=== PATIENT | male | born 1960 | race Caucasian/White ===

== ENCOUNTER 2021-09-09 11:53 | Emergency (ER) | payer MEDICARE, OTHER ==
[~2021-09-09] VITALS: Ht 167.6 cm; Wt 68.9 kg
--- NOTE | 2021-09-09 12:10 | NUR ---
PATIENT FOR G-TUBE REPLACEMENT
--- NOTE | 2021-09-09 12:15 | NUR ---
SEEN BY DR CALERO. REPLACED G-TUBE WITH STANDARD BALLOON- 16F
--- NOTE | 2021-09-09 12:25 | NUR ---
X-RAY TECH. AT BED SIDE
[2021-09-09 13:06] VITALS: BP 120/75
== END 2021-09-09 13:04 | disposition home or self-care (01) ==
LOC: ER 11:55
DX: K94.23 Gastrostomy malfunction (principal); E78.5 Hyperlipidemia, unspecified; K21.9 Gastro-esophageal reflux disease without esophagitis; E11.22 Type 2 diabetes mellitus with diabetic chronic kidney disease; I12.0 Hypertensive chronic kidney disease with stage 5 chronic kidney disease or end stage renal disease; N18.6 End stage renal disease; F20.9 Schizophrenia, unspecified; Z99.2 Dependence on renal dialysis; Z86.69 Personal history of other diseases of the nervous system and sense organs; Z87.09 Personal history of other diseases of the respiratory system
CPT/HCPCS: 74018

== ENCOUNTER 2022-09-28 12:46 | Inpatient (IN) | payer MEDICARE, OTHER ==
[~2022-09-28] VITALS: Ht 139.7 cm; Wt 65.8 kg
--- NOTE | 2022-09-28 12:55 | NUR ---
BIBPA FROM DIALYSIS FOR HYPOTENSION. 78/53 ON ARRIVAL. PLACED IN BED, NON VERBAL WITH TRACH. TUBE- VENTILATOR DEPENDENT SATURATING AT 100% WITH SETTING FIO2- 40, VT- 500, RATE- 14, PEEP- 5.
[2022-09-28] MEDS ORDERED: MIDODRINE HCL (5MG) 5 MG TABLET NG STA (12:56)
--- NOTE | 2022-09-28 13:10 | NUR ---
SLIVER FORMER AT BEDSIDE
[2022-09-28] MEDS ORDERED: MIDODRINE HCL (5MG) 5 MG TABLET ONE (13:11)
[2022-09-28] MEDS ORDERED: VANCOMYCIN 1 GM in IV D5W 250 ML IV ONE (13:30)
[2022-09-28] MEDS ORDERED: CEFEPIME 1 GM in IV D5W 50 ML IV ONE (13:30)
[2022-09-28 13:39] LABS: BASOPHILS % (AUTO) 0.3 % (0.0-2.0); EOSINOPHILS % (AUTO) 0.9 % (0.0-6.0); HEMATOCRIT 30 % (39-51); HEMOGLOBIN 9.2 g/dL (13.5-17.5); LYMPHOCYTES # (AUTO) 1.7 K/uL (0.8-4.8); LYMPHOCYTES % (AUTO) 11.3 % (20.0-44.0); MEAN CORPUSCULAR HGB CONC 31 g/dl (31.0-36.0); MEAN CORPUSCULAR VOLUME 102 fL (80-96); MONOCYTES # (AUTO) 1.4 K/uL (0.1-1.30); MONOCYTES % (AUTO) 9.6 % (2.0-12.0); NEUTROPHILS # (AUTO) 11.5 K/uL (1.8-8.9); NEUTROPHILS % (AUTO) 77.9 % (43.0-81.0); PLATELET COUNT (AUTO) 216 K/uL (150-450); RED BLOOD CELL COUNT(AUTO) 2.91 MIL/uL (4.5-6.0); WHITE BLOOD COUNT (AUTO) 14.8 K/uL (4.3-11.0)
[2022-09-28 13:49] LABS: CALCIUM, SERUM 8.6 mg/dL (8.5-10.1); CARBON DIOXIDE 27 mmol/L (21-32); CHLORIDE 106 mmol/L (98-107); CREATININE 2.8 mg/dL (0.6-1.3); GLUCOSE 142 mg/dL (74-106); POTASSIUM 3.4 mmol/L (3.5-5.1); SODIUM SERUM 141 mmol/L (136-145); UREA NITROGEN, BLOOD 42 mg/dL (7-18)
[2022-09-28 13:56] LABS: ALANINE AMINOTRANSFERASE 16 U/L (12-78); ALBUMIN 2.3 g/dL (3.4-5.0); ALKALINE PHOSPHATASE 134 U/L (46-116); ASPARTATE AMINOTRANSFERASE 10 U/L (15-37); BILIRUBIN,DIRECT 0.1 mg/dL (0.0-0.2); BILIRUBIN,TOTAL 0.3 mg/dL (0.2-1.0); TOTAL PROTEIN, SERUM 6.3 g/dL (6.4-8.2)
--- NOTE | 2022-09-28 13:58 | NUR ---
[facility] CALLED, QUILL FIXER PAGED.
--- NOTE | 2022-09-28 14:31 | NUR ---
[facility]. [facility] [phone].
--- NOTE | 2022-09-28 14:38 | NUR ---
GOT BED 101 ADMITTING INFORMED.
--- NOTE | 2022-09-28 15:05 | NUR ---
REPORT GIVEN TO MADISON RN ROOM 101 FOR SARA
--- NOTE | 2022-09-28 15:25 | NUR ---
PATIENT TRANSFERED AND ADMITTED PER [facility]
--- NOTE | 2022-09-28 15:30 | NUR ---
ENGINE DISPATCHER ADMSSION NOTE RECEIVED PT FROM ER. PT IS OBTUNDED, NONVERBAL, RESPONDS TO PAINFUL STIMUL. PT ON TRACH WITH ORDERED SETTINGS TOLERATING WELL SH 8, FIO2 40%, TV 500, PEEP 5, O2 SATURATION AT 100%. NOTED TO HAVE LEFT UPPER CHEST WALL HD ACESSS. PT HAS RIGHT FOREARM 20 GUAGE,. IV INTACT, PTATENT AND FLUSHING WELL, CLAMPED. PT HAS R FOREARM 20 GUAGE, IV ITNACT, PATENT AND FLUSHING WELL. PT NOTED TO HAVE BELOW AND ABOVE KNEE AMPUTATION ON BOTH EXTREMTIES. NOTED TO HAVE OLD SCARRING ON UPPER AND LOWER EXTREMITIES. ALL SAFETY MEASURES IN PLACE. CALL LIGHT WITHIN REACH. BED LOCKED AT LOWEST POSITION. SIDE RAILS UP X2.BED ALARM ON Addendum: 09/28/22 at 1700 by SAEID FLAHERTY RN ON TELE MONITOR CURRENTLY IN 60S
[2022-09-28] MEDS ORDERED: ACETAMINOPHEN 325 MG TABLET PO PRN (16:00)
[2022-09-28] MEDS ORDERED: ONDANSETRON HCL/PF 4 MG/2 ML VIAL IVP PRN (16:00)
[2022-09-28] MEDS ORDERED: Z GUARD REMEDY 4 OZ OINT TP PRN (16:00)
[2022-09-28] MEDS ORDERED: MAGNESIUM HYDROXIDE 30 ML UDC PO PRN (16:00)
[2022-09-28] MEDS ORDERED: MAG HYDROX/AL HYDROX/SIMETH 30 ML UDC PO PRN (16:00)
[2022-09-28] MEDS ORDERED: ZOLPIDEM TARTRATE 5 MG TABLET PO PRN (16:00)
[2022-09-28] MEDS ORDERED: POLY15DR40 EACHEYE (16:37)
[2022-09-28] MEDS ORDERED: NAPH1POW3 GT (16:37)
[2022-09-28] MEDS ORDERED: SACU1TAB PO (16:37)
[2022-09-28] MEDS ORDERED: AMIN30LI2 GT (16:37)
[2022-09-28] MEDS ORDERED: CARV12.52 GT (16:37)
[2022-09-28] MEDS ORDERED: MENT113O6 TP (16:37)
[2022-09-28] MEDS ORDERED: DOCU50LI GT (16:37)
[2022-09-28] MEDS ORDERED: SENN-261 GT (16:37)
[2022-09-28] MEDS ORDERED: DORZ10DR11 EACHEYE (16:37)
[2022-09-28] MEDS ORDERED: AMLO-213 GT (16:37)
[2022-09-28] MEDS ORDERED: CLON0.3P TD (16:37)
[2022-09-28] MEDS ORDERED: INSU100V10 SQ (16:37)
[2022-09-28] MEDS ORDERED: ACET-868 GT (16:37)
[2022-09-28] MEDS ORDERED: POLY17PO4 GT (16:37)
[2022-09-28] MEDS ORDERED: MAGN400T26 GT (16:37)
[2022-09-28] MEDS ORDERED: NUT.237L67 GT (16:37)
[2022-09-28] MEDS ORDERED: VALP250S4 GT (16:37)
[2022-09-28] MEDS ORDERED: PANT40SU2 GT (16:37)
[2022-09-28] MEDS ORDERED: BRIM5DRO3 LEFTEYE (16:37)
[2022-09-28] MEDS ORDERED: FOLI0.8T2 GT (16:37)
[2022-09-28] MEDS ORDERED: IPRA3AMP23 IH (16:37)
[2022-09-28] MEDS ORDERED: HYDR-4077 GT (16:37)
[2022-09-28] MEDS ORDERED: MICO14CR5 TP (16:37)
--- NOTE | 2022-09-28 16:56 | NUR ---
RN NOTE NOTIFIED POTASSIUM 3.4
[2022-09-28 17:00] VITALS: BP 93/59
--- NOTE | 2022-09-28 17:53 | NUR ---
RN NOTE PT CAME FROM [facility] [phone]
--- NOTE | 2022-09-28 18:20 | NUR ---
RN NOTE TEMPERATURE 99.7, COOLING MEASURES IMPLEMENTED. TEMPERATURE RECHECK 98.4
[2022-09-28] MEDS ORDERED: Medication Not On Formulary EA (Ipratropium/Albuterol Sulfate (Duoneb 2.5-0.5 Mg/3 Ml So IH PRN (18:30)
[2022-09-28] MEDS ORDERED: POLYETHYLENE GLYCOL 3350 17 GM POWD.PACK GT PRN (18:30)
[2022-09-28] MEDS ORDERED: NEPRO VAN 237 ML CAN GT SCH (18:30)
[2022-09-28] MEDS ORDERED: ALBUTEROL FS 2.5 MG/0.5 ML VIAL.NEB NEB PRN (19:00)
[2022-09-28] MEDS ORDERED: IPRATROPIUM NEB FS 0.5 MG/2.5 ML AMPUL.NEB NEB PRN (19:00)
--- NOTE | 2022-09-28 19:21 | NUR ---
RELATIONSHIP COUNSELOR CLOSING NOTE PT IS OBTUNDED, NONVERBAL, RESPONDS TO PAINFUL STIMUL. PT ON TRACH WITH ORDERED SETTINGS TOLERATING WELL SH 8, AC, FIO2 40%, TV 500, PEEP 5, O2 SATURATION AT 100%. LEFT UPPER CHEST WALL HD ACESSS. PT HAS RIGHT FOREARM 20 GUAGE, IV ITNACT, PATENT AND FLUSHING WELL. GTUBE,PATENT AND CLAMPED. PT NOTED TO HAVE BELOW AND ABOVE KNEE AMPUTATION ON BOTH EXTREMTIES. NOTED TO HAVE OLD SCARRING ON UPPER AND LOWER EXTREMITIES. ALL SAFETY MEASURES IN PLACE. CALL LIGHT WITHIN REACH. BED LOCKED AT LOWEST POSITION. SIDE RAILS UP X2.BED ALARM ON.ENDORSED TO PRODUCTION SCHEDULER RN FOR CONTUITY OF CARE
--- NOTE | 2022-09-28 19:25 | NUR ---
RN NOTE Received pt in bed, obtunded, responsive to tactile stimuli only. On mech vent. via trach, current settings well tolerated, O2 sat- 100%. Afebrile. No facial grimacing, no s/sx of pain or discomfort noted at this time. PIV access on RFA #20G, patent, dressing CDI, on SL. PEG tube noted, in placed, patent, and secured, 0 residual, clamped. HOB elevated. Safety precaution implemented- bed locked and in lowest position, bed alarm on. Family at bedside. Will cont. plan of care
[2022-09-28 19:54] LABS: MAGNESIUM 2.4 mg/dL (1.8-2.4); PHOSPHORUS 2.3 mg/dL (2.5-4.9)
[2022-09-28 21:00] VITALS: BP 97/55
[2022-09-28] MEDS: CARVEDILOL 12.5 MG TABLET GT SCH (21:00)
[2022-09-28] MEDS: VALPROIC ACID 250 MG/5 ML UDC GT SCH (21:22)
[2022-09-28] MEDS: INSULIN GLARGINE, 100 UNIT/ML CARTRIDGE SQ SCH (22:00)
[2022-09-28] MEDS: SENNOSIDES 8.6 MG TABLET GT SCH (22:29)
[2022-09-28] MEDS ORDERED: DEXTROSE 50%-WATER 50 ML DISP.SYRIN IV PRN (22:30)
[2022-09-28] MEDS: INSULIN REGULAR, HUMAN 100 UNIT/ML 3 ML VIAL SQ PRN (23:45)
[2022-09-28] MEDS: BLOOD SUGAR DIAGNOSTIC 1 EACH STRIP IN SCH (23:45)
[2022-09-29 01:00] VITALS: BP 110/61
[2022-09-29 05:00] VITALS: BP 115/54
[2022-09-29] MEDS: VALPROIC ACID 250 MG/5 ML UDC GT SCH ×3 (05:17→21:10)
[2022-09-29 06:25] LABS: BASOPHILS # (AUTO) 0.2 K/uL (0.0-0.2); BASOPHILS % (AUTO) 1.7 % (0.0-2.0); EOSINOPHILS % (AUTO) 5.3 % (0.0-6.0); HEMATOCRIT 30 % (39-51); HEMOGLOBIN 9.3 g/dL (13.5-17.5); LYMPHOCYTES # (AUTO) 2.8 K/uL (0.8-4.8); LYMPHOCYTES % (AUTO) 21.9 % (20.0-44.0); MEAN CORPUSCULAR HGB CONC 31 g/dl (31.0-36.0); MEAN CORPUSCULAR VOLUME 103 fL (80-96); MONOCYTES # (AUTO) 1.6 K/uL (0.1-1.30); MONOCYTES % (AUTO) 12.7 % (2.0-12.0); NEUTROPHILS # (AUTO) 7.4 K/uL (1.8-8.9); NEUTROPHILS % (AUTO) 58.4 % (43.0-81.0); PLATELET COUNT (AUTO) 144 K/uL (150-450); RED BLOOD CELL COUNT(AUTO) 2.93 MIL/uL (4.5-6.0); WHITE BLOOD COUNT (AUTO) 12.7 K/uL (4.3-11.0)
[2022-09-29] MEDS: BLOOD SUGAR DIAGNOSTIC 1 EACH STRIP IN SCH ×4 (06:59→23:45)
[2022-09-29] MEDS: INSULIN REGULAR, HUMAN 100 UNIT/ML 3 ML VIAL SQ PRN ×4 (07:00→23:48)
--- NOTE | 2022-09-29 07:15 | NUR ---
LINEN CLERK OPENING NOTE Received pt in bed, obtunded, responsive to tactile stimuli only. On mech vent. via trach, current settings well tolerated, O2 sat- 100%. SR 68 W/PAC AND PVCS. ON TELE MONITOR PIV access on RFA #20G, patent, dressing CDI, on SL. PEG tube noted, in placed, patent, and secured, 0 residual, clamped. HOB elevated. Safety precaution implemented- bed locked and in lowest position, bed alarm on.
[2022-09-29 08:04] LABS: CALCIUM, SERUM 9.3 mg/dL (8.5-10.1); CREATININE 3.9 mg/dL (0.6-1.3); MAGNESIUM 2.7 mg/dL (1.8-2.4); PHOSPHORUS 3.8 mg/dL (2.5-4.9); POTASSIUM 4.1 mmol/L (3.5-5.1)
[2022-09-29] MEDS ORDERED: NEPRO 1,000 ML BOTTLE GT PRN (08:30)
[2022-09-29 09:00] VITALS: BP 108/65
[2022-09-29] MEDS: CARVEDILOL 12.5 MG TABLET GT SCH ×2 (09:00→21:10)
[2022-09-29] MEDS: hydrALAZINE HCL 50 MG TABLET GT SCH ×3 (09:00→16:33)
[2022-09-29] MEDS ORDERED: MICONAZOLE NITRATE 2% CREAM 1 EA TUBE TP SCH (09:00)
[2022-09-29] MEDS ORDERED: [UNRECOGNIZED DRUG - OTHER] EACHEYE SCH (09:00)
[2022-09-29] MEDS: PROSOURCE / PROSTAT (PYXIS) 30 ML UDC GT SCH ×3 (09:00→16:33)
[2022-09-29] MEDS: SACUBITRIL/VALSARTAN 1 EACH TABLET PO SCH ×2 (09:00→17:46)
[2022-09-29] MEDS ORDERED: TIMOLOL MAL/DORZOLAM HCL OPHTH 10 ML BOTTLE EACHEYE SCH (09:00)
[2022-09-29] MEDS ORDERED: TIMOLOL EACHEYE SCH (09:00)
[2022-09-29] MEDS ORDERED: CLONIDINE HCL 0.3 MG/24H PTWK 1 EA PATCH TD SCH (09:00)
[2022-09-29] MEDS: AMLODIPINE BESYLATE 10 MG TABLET GT SCH (09:00)
--- NOTE | 2022-09-29 09:11 | NUR ---
WOUND CARE CONSULT: PT PRESENTS WITH SCARRING/DRY SCAB TO RT ABOVE KNEE AMPUTATION STUMP, SACRAL DEEP TISSUE INJURY WITH SCARRING AND AREAS OF SKIN DISCOLORATION, PRESENT ON ADMISSION. 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 DISCUSSES SKIN PROTECTION WITH NURSING STAFF. IN AGREEMENT WITH PLAN OF CARE. Addendum: 09/29/22 at 912 by JASMINA GALE Amended: Links added. Addendum: 09/29/22 at 912 by JASMINA MEZAU LOW AIRLOSS MATTRESS IS ON ORDER.
--- NOTE | 2022-09-29 09:23 | NUR ---
RN NOTE NOTIFIED IBP 108/65 AND IF OKAY TO HOLD BP MEDICATIONS, HYDRAZALINE,COREG, NORVASC, AND ENTRESTO. SAID OKAY TO HOLD
[2022-09-29] MEDS: TIMOLOL 0.25% SOL OPHTH 10 ML BOTTLE EACHEYE SCH ×2 (09:42→16:26)
[2022-09-29] MEDS: POLYVINYL ALCOHOL 15 ML BOTTLE EACHEYE SCH ×2 (09:42→16:26)
[2022-09-29] MEDS: NEUTRA PHOS 1 POWD.PACKET GT SCH (09:43)
[2022-09-29] MEDS: BRIMONIDINE TARTRATE OPHT SOLN 5 ML BOTTLE LEFTEYE SCH ×2 (09:43→16:27)
[2022-09-29] MEDS: MAGNESIUM OXIDE 400 MG TABLET GT SCH (09:43)
[2022-09-29] MEDS: DOCUSATE SODIUM LIQ 100 MG/10 ML UDC GT SCH ×2 (09:43→16:32)
[2022-09-29] MEDS: DORZOLAMIDE OPTH 2% 10 ML BOTTLE EACHEYE SCH ×2 (09:43→16:27)
[2022-09-29] MEDS: PANTOPRAZOLE 40 MG/PACK PACK GT SCH (09:43)
[2022-09-29] MEDS: VIT B CMPLX 3/FA/VIT C/BIOTIN 1 TAB TABLET GT SCH (09:43)
[2022-09-29 13:00] VITALS: BP 131/66
[2022-09-29 13:45] LABS: THYROID STIMULATING HORMONE 0.791 uIU/mL (0.358-3.74)
[2022-09-29] MEDS: CEFEPIME 1 GM in IV D5W 50 ML IV SCH (14:00)
[2022-09-29 17:00] VITALS: BP 125/65
[2022-09-29] MEDS: CLOTRIMAZOLE 1% 15 GM TUBE TP SCH (17:45)
--- NOTE | 2022-09-29 19:18 | NUR ---
PHYSICIAN OFFICE CLIN ASST OPENING NOTE PT IN BED, OBTUNDED, RESPONSIVE TO TACTILE STIMULI ONLY.ON MECHANICAL VENT VIA TRACH, TOLERATING SETTINGS WELL, O2 SAT AT 100%. SR 79 ON TELE MONITOR. IV ACCESS ON RFA 20 GUAGE, PATENT, INTACT AND FLUSHING WELL.LEFT UPPER CHEST WALL HD CATH,DRESSING CLEAN AND DRY. GTUBE IN PLACE,PATENT, NO RESIDUAL VOLUME NOTED, ON NEPHRO FEEDING 55 ML/HR X17 HOURS, TOLERATING WELL. HOB ELEVATED AT ALL TIMES. ALL SAFETY MEASURES IN PLACE. BED LOCKED IN LOWEST POSITION. SIDE RAILS UP X2, BED ALARM ON.FAMILY AT BEDSIDE AT THIS TIME. ENDORSED TO OVEN UNLOADER RN FOR CONTUITY OF CARE Addendum: 09/29/22 at 1919 by SAEID FLAHERTY RN CLOSING NOTE
[2022-09-29 20:00] VITALS: BP 124/67
[2022-09-29] MEDS: SENNOSIDES 8.6 MG TABLET GT SCH (21:10)
[2022-09-29] MEDS: INSULIN GLARGINE, 100 UNIT/ML CARTRIDGE SQ SCH (23:49)
[2022-09-30 00:10] VITALS: BP 121/58
--- NOTE | 2022-09-30 02:35 | NUR ---
HEPATITIS B TEST New order Hep B stat. Per lab, Test is send out and results takes 3-5 days to come out, will draw blood earliest around 0500am with am lab so as not needle stick patient twice.
[2022-09-30 04:15] VITALS: BP 156/75
[2022-09-30] MEDS: BLOOD SUGAR DIAGNOSTIC 1 EACH STRIP IN SCH ×4 (05:13→23:36)
[2022-09-30] MEDS: VALPROIC ACID 250 MG/5 ML UDC GT SCH ×3 (05:13→20:59)
[2022-09-30] MEDS: INSULIN REGULAR, HUMAN 100 UNIT/ML 3 ML VIAL SQ PRN ×3 (05:19→23:14)
--- NOTE | 2022-09-30 05:31 | NUR ---
END OF SHIFT REPORT Patient in bed, nonverbal, eyes open. Trach intact, secretion large, suction frequently. Mech vent setting remains the same. Sinus rhythm in the seed cutter HR 74. Oxygen sat 100%. Gtube feeding at 55ml/hr, minimal gastric residual 5ml. IV peripheral line RFA intact. On IV abx. Afebrile during the night. Turned and repositioned, had BM. No urine for test as patient has not voided, Anuric. Left upper chest HD catheter intact, plan for dialysis treatment today. Accu check q6h with sliding insulin parameters given. Optifoam to sacral DTI. Off load extremities. Will endorse to oncoming RN.
[2022-09-30 06:24] LABS: BASOPHILS % (AUTO) 0.4 % (0.0-2.0); EOSINOPHILS % (AUTO) 7.5 % (0.0-6.0); HEMATOCRIT 33 % (39-51); HEMOGLOBIN 10.3 g/dL (13.5-17.5); LYMPHOCYTES # (AUTO) 1.8 K/uL (0.8-4.8); LYMPHOCYTES % (AUTO) 15.5 % (20.0-44.0); MEAN CORPUSCULAR HGB CONC 31 g/dl (31.0-36.0); MEAN CORPUSCULAR VOLUME 100 fL (80-96); MONOCYTES # (AUTO) 1.5 K/uL (0.1-1.30); MONOCYTES % (AUTO) 12.8 % (2.0-12.0); NEUTROPHILS # (AUTO) 7.6 K/uL (1.8-8.9); NEUTROPHILS % (AUTO) 63.8 % (43.0-81.0); PLATELET COUNT (AUTO) 258 K/uL (150-450); RED BLOOD CELL COUNT(AUTO) 3.29 MIL/uL (4.5-6.0); WHITE BLOOD COUNT (AUTO) 11.9 K/uL (4.3-11.0)
[2022-09-30 06:54] LABS: CALCIUM, SERUM 9.5 mg/dL (8.5-10.1); MAGNESIUM 2.8 mg/dL (1.8-2.4); PHOSPHORUS 4.4 mg/dL (2.5-4.9); POTASSIUM 3.5 mmol/L (3.5-5.1)
--- NOTE | 2022-09-30 07:45 | NUR ---
UNIFORM DESIGNER OPENING NOTE RECEIVED PT IN BED, OBTUNDED, RESPONSIVE TO TACTILE STIMULI ONLY. ON MECHANICAL VENT VIA TRACH, TOLERATING SETTINGS WELL, O2 SAT AT 100%. SR ON TELE MONITOR. IV ACCESS ON RFA 20 GAUGE PATENT, INTACT AND FLUSHING WELL. LEFT UPPER CHEST WALL HD CATH,DRESSING CLEAN AND DRY. GTUBE IN PLACE,PATENT, NO RESIDUAL VOLUME NOTED, ON NEPHRO FEEDING 55 ML/HR, TOLERATING WELL, HOB ELEVATED AT ALL TIMES. ALL SAFETY MEASURES IN PLACE. BED LOCKED IN LOWEST POSITION. SIDE RAILS UP X2, BED ALARM ON. CALL LIGHT WITHIN REACH. PLAN OF CARE CONTINUE.
[2022-09-30 08:00] VITALS: BP 135/68
[2022-09-30] MEDS: PROSOURCE / PROSTAT (PYXIS) 30 ML UDC GT SCH ×3 (08:16→16:18)
[2022-09-30] MEDS: BRIMONIDINE TARTRATE OPHT SOLN 5 ML BOTTLE LEFTEYE SCH ×2 (08:16→16:18)
[2022-09-30] MEDS: DORZOLAMIDE OPTH 2% 10 ML BOTTLE EACHEYE SCH ×2 (08:16→16:18)
[2022-09-30] MEDS: CLOTRIMAZOLE 1% 15 GM TUBE TP SCH (08:16)
[2022-09-30] MEDS: TIMOLOL 0.25% SOL OPHTH 10 ML BOTTLE EACHEYE SCH ×2 (08:16→16:18)
[2022-09-30] MEDS: POLYVINYL ALCOHOL 15 ML BOTTLE EACHEYE SCH ×2 (08:16→16:18)
[2022-09-30] MEDS: SACUBITRIL/VALSARTAN 1 EACH TABLET PO SCH ×2 (09:32→16:44)
[2022-09-30] MEDS: PANTOPRAZOLE 40 MG/PACK PACK GT SCH (09:32)
[2022-09-30] MEDS: MAGNESIUM OXIDE 400 MG TABLET GT SCH (09:32)
[2022-09-30] MEDS: NEUTRA PHOS 1 POWD.PACKET GT SCH (09:32)
[2022-09-30] MEDS: DOCUSATE SODIUM LIQ 100 MG/10 ML UDC GT SCH ×2 (09:32→16:44)
[2022-09-30] MEDS: VIT B CMPLX 3/FA/VIT C/BIOTIN 1 TAB TABLET GT SCH (09:32)
[2022-09-30] MEDS: CARVEDILOL 12.5 MG TABLET GT SCH ×2 (09:33→20:59)
[2022-09-30] MEDS: hydrALAZINE HCL 50 MG TABLET GT SCH ×3 (09:33→16:44)
[2022-09-30] MEDS: AMLODIPINE BESYLATE 10 MG TABLET GT SCH (09:33)
[2022-09-30 12:00] VITALS: BP 117/70
[2022-09-30] MEDS: CEFEPIME 1 GM in IV D5W 50 ML IV SCH (12:11)
[2022-09-30] MEDS: VANCOMYCIN POST DIALYSIS 500MG IV PRN ×2 (13:10)
[2022-09-30] MEDS: NEPRO 1,000 ML BOTTLE GT PRN (13:46)
[2022-09-30 16:00] VITALS: BP 116/57
--- NOTE | 2022-09-30 18:32 | NUR ---
FINANCIAL SERVICES INTERN CLOSING NOTE PT IN BED, OBTUNDED, RESPONSIVE TO TACTILE STIMULI ONLY. ON MECHANICAL VENT VIA TRACH, TOLERATING SETTINGS WELL, O2 SAT AT 100%. SR ON TELE MONITOR SR 74 HR. IV ACCESS ON RFA 20 GAUGE PATENT, INTACT AND FLUSHING WELL. LEFT UPPER CHEST WALL HD CATH,DRESSING CLEAN AND DRY. GTUBE IN PLACE,PATENT, NO RESIDUAL VOLUME NOTED, ON NEPHRO FEEDING 45 ML/HR, TOLERATING WELL, NO N/V/D NOTED, HOB ELEVATED AT ALL TIMES. ALL SAFETY MEASURES IN PLACE. BED LOCKED IN LOWEST POSITION. SIDE RAILS UP X2, BED ALARM ON. CALL LIGHT WITHIN REACH. WILL ENDORSE TO NIGHT NURSE FOR SARA.
[2022-09-30 20:00] VITALS: BP 115/68
--- NOTE | 2022-09-30 20:00 | NUR ---
PROMOTIONS ASSOCIATE NOTE Received pt in bed, obtunded.V/S STABLE afebrile no sob no distress noted .On mech vent. via trach, current settings well tolerated, O2 sat- 100%. No facial grimacing, no s/sx of pain or discomfort noted at this time. PIV access on RFA #20G,on sl. patent, right chest wall hd access dressing CDI, PEG tube noted,nephro at 45cc/hrx 20 hrs in placed, patent, and secured, 0 residual, clamped. HOB elevated. call light within reach ,all needs attended too.Safety precaution implemented- bed locked and in lowest position, bed alarm on. Will cont. plan of care.
[2022-09-30] MEDS: SENNOSIDES 8.6 MG TABLET GT SCH (21:14)
[2022-09-30] MEDS: INSULIN GLARGINE, 100 UNIT/ML CARTRIDGE SQ SCH (23:13)
--- NOTE | 2022-09-30 23:21 | NUR ---
CHARGER TESTER NOTES: BLOOD SUGAR FOR 11PM IS 177 MG/DL,30UNITS OF LANTUS GIVEN ORDERED AND 3 UNITS OF REGULAR INSULIN PER SLIDING SCALE. PT IN GT FEEDING.
[2022-10-01] VITALS: BP 128/66
[2022-10-01 04:00] VITALS: BP 115/68
[2022-10-01] MEDS: BLOOD SUGAR DIAGNOSTIC 1 EACH STRIP IN SCH ×4 (05:15→23:23)
[2022-10-01] MEDS: VALPROIC ACID 250 MG/5 ML UDC GT SCH ×3 (05:15→21:04)
[2022-10-01] MEDS: INSULIN REGULAR, HUMAN 100 UNIT/ML 3 ML VIAL SQ PRN ×4 (05:17→23:25)
--- NOTE | 2022-10-01 05:20 | NUR ---
DAY CARE HOME PROVIDER NOTES: bloodsugar at 6am 167 mg/dl , 3 units of regular insulin given per sliding scale, pt on GT feeding
--- NOTE | 2022-10-01 05:54 | NUR ---
MANAGER BOOKS CLOSING NOTES Patient remain in bed, nonverbal, eyes open. Trach intact, secretion large, suction frequently. Mech vent setting remains the same. Sinus rhythm in the wet process operator HR 83. Oxygen sat 99%. Gtube feeding nephro at 45ml/hr, minimal gastric residual 5ml. IV peripheral line RFA intact. Afebrile during the night. Turned and repositioned, . Left upper chest HD catheter intact, Optifoam to sacral DTI. Off load extremities. Will endorse to incoming RN For continuty of care.
--- NOTE | 2022-10-01 07:10 | NUR ---
CIVIL DIVISION DEPUTY SHERIFF OPEN NOTE: OBTUNDED. TRACH AND VENT AT PRESCRIBED SETTINGS. SKIN IS WARM AND DRY. RACE AND SPORTS BOOK WRITER SINUS RHYTHM 82. LEFT UPPER CHEST HD CATHETER INTACT WITH CLEAN DRESSING. RT FOREARM IV G20 SALINE LOCKED, PATENT. GT IN PLACE PATENT NO RESIDUAL WITH NEPHRO FORMULA AT 45ML/HR. HOB ELEVATED. BILATERAL HALF SIDE RAILS UPX2. BED IN LOW POSITION, LOCKED, EXIT ALARM ON. CALL LIGHT IN REACH. ASPIRATION PRECAUTIONS MAINTAINED.
[2022-10-01 07:16] LABS: BASOPHILS % (AUTO) 0.5 % (0.0-2.0); EOSINOPHILS % (AUTO) 8.2 % (0.0-6.0); HEMATOCRIT 34 % (39-51); HEMOGLOBIN 10.6 g/dL (13.5-17.5); LYMPHOCYTES % (AUTO) 18.9 % (20.0-44.0); MEAN CORPUSCULAR HGB CONC 32 g/dl (31.0-36.0); MEAN CORPUSCULAR VOLUME 100 fL (80-96); MONOCYTES # (AUTO) 1.5 K/uL (0.1-1.30); MONOCYTES % (AUTO) 14.4 % (2.0-12.0); PLATELET COUNT (AUTO) 266 K/uL (150-450); RED BLOOD CELL COUNT(AUTO) 3.35 MIL/uL (4.5-6.0); WHITE BLOOD COUNT (AUTO) 10.4 K/uL (4.3-11.0)
[2022-10-01 07:24] LABS: CALCIUM, SERUM 9.6 mg/dL (8.5-10.1); CREATININE 3.8 mg/dL (0.6-1.3); MAGNESIUM 2.6 mg/dL (1.8-2.4); PHOSPHORUS 3.3 mg/dL (2.5-4.9); POTASSIUM 3.3 mmol/L (3.5-5.1)
[2022-10-01 08:00] VITALS: BP 114/74
[2022-10-01] MEDS: POLYVINYL ALCOHOL 15 ML BOTTLE EACHEYE SCH ×2 (09:21→18:12)
[2022-10-01] MEDS: TIMOLOL 0.25% SOL OPHTH 10 ML BOTTLE EACHEYE SCH ×2 (09:22→18:13)
[2022-10-01] MEDS: CLOTRIMAZOLE 1% 15 GM TUBE TP SCH (09:23)
[2022-10-01] MEDS: DORZOLAMIDE OPTH 2% 10 ML BOTTLE EACHEYE SCH ×2 (09:23→18:13)
[2022-10-01] MEDS: BRIMONIDINE TARTRATE OPHT SOLN 5 ML BOTTLE LEFTEYE SCH ×2 (09:24→18:16)
[2022-10-01] MEDS: PANTOPRAZOLE 40 MG/PACK PACK GT SCH (09:25)
[2022-10-01] MEDS: PROSOURCE / PROSTAT (PYXIS) 30 ML UDC GT SCH ×3 (09:26→17:20)
[2022-10-01] MEDS: VIT B CMPLX 3/FA/VIT C/BIOTIN 1 TAB TABLET GT SCH (09:27)
[2022-10-01] MEDS: NEUTRA PHOS 1 POWD.PACKET GT SCH (09:27)
[2022-10-01] MEDS: DOCUSATE SODIUM LIQ 100 MG/10 ML UDC GT SCH ×2 (09:27→17:19)
[2022-10-01] MEDS: MAGNESIUM OXIDE 400 MG TABLET GT SCH (09:27)
[2022-10-01] MEDS: CARVEDILOL 12.5 MG TABLET GT SCH ×2 (09:28→21:00)
[2022-10-01] MEDS: hydrALAZINE HCL 50 MG TABLET GT SCH ×3 (09:28→17:00)
[2022-10-01] MEDS: SACUBITRIL/VALSARTAN 1 EACH TABLET PO SCH ×2 (09:29→17:00)
[2022-10-01] MEDS: AMLODIPINE BESYLATE 10 MG TABLET GT SCH (09:29)
[2022-10-01 12:00] VITALS: BP 118/61
--- NOTE | 2022-10-01 12:03 | NUR ---
DOCTOR LEW INFORMED POTASSIUM IS 3.3, WITH NO NEW ORDERS, PER DOCTOR VIPIN PATIENT IS ON HD TO LEAVE LEVEL IS FOR NOW.
[2022-10-01] MEDS: CEFEPIME 1 GM in IV D5W 50 ML IV SCH (12:44)
[2022-10-01 16:00] VITALS: BP 103/59
[2022-10-01] MEDS: ACETAMINOPHEN 325 MG TABLET MC PRN (17:19)
[2022-10-01] MEDS: NEPRO 1,000 ML BOTTLE GT PRN (17:20)
--- NOTE | 2022-10-01 17:31 | NUR ---
DOCTOR VIPIN INFORMED HYDRALAZINE AND ENTRESTO 5 PM DOSE HELD, BP 103/59 HR 73.
--- NOTE | 2022-10-01 18:46 | NUR ---
FLIGHT TECHNICIAN CLOSING NOTE: OBTUNDED. TRACH AND VENT AT PRESCRIBED SETTINGS. SKIN IS WARM AND DRY. MANAGER OPERATING SINUS RHYTHM 82. LEFT UPPER CHEST HD CATHETER INTACT WITH CLEAN DRESSING. RT FOREARM IV G20 SALINE LOCKED, PATENT. GT IN PLACE PATENT NO RESIDUAL WITH NEPHRO FORMULA AT 45ML/HR. HOB ELEVATED. BILATERAL HALF SIDE RAILS UPX2. BED IN LOW POSITION, LOCKED, EXIT ALARM ON. CALL LIGHT IN REACH. ASPIRATION PRECAUTIONS MAINTAINED. VISITED BY . KEPT CLEAN AND DRY. TURNED AND REPOSITIONED. TOTAL CARE PROVIDED. WOUND CARE DONE ORDERED. BLOOD GLUCOSE CHECKED AND COVERED ORDERED. NO S/S OF HYPO OR HYPER GLYCEMIA.
--- NOTE | 2022-10-01 19:30 | NUR ---
TELE TRAINING TECHNICIAN OPENING NOTE RECEIVED PT IN BED, A/O X0, RESPONSIVE TO TACTILE STIMULI ONLY. ON MECHANICAL VENT VIA TRACH, TOLERATING SETTINGS WELL, O2 SAT AT 100%. SR ON TELE MONITOR. IV ACCESS ON RFA 20 GAUGE PATENT, INTACT AND FLUSHING WELL. LEFT UPPER CHEST WALL HD CATH,DRESSING CLEAN AND DRY. GTUBE IN PLACE,PATENT, NO RESIDUAL VOLUME NOTED, ON NEPHRO FEEDING 55 ML/HR, TOLERATING WELL, HOB ELEVATED AT ALL TIMES. ALL SAFETY MEASURES IN PLACE. BED LOCKED IN LOWEST POSITION. SIDE RAILS UP X2, BED ALARM ON. CALL LIGHT WITHIN REACH. PLAN OF CARE CONTINUE.
[2022-10-01 20:00] VITALS: BP 94/57
[2022-10-01] MEDS: SENNOSIDES 8.6 MG TABLET GT SCH (21:04)
[2022-10-01] MEDS: INSULIN GLARGINE, 100 UNIT/ML CARTRIDGE SQ SCH (22:29)
[2022-10-02] VITALS: BP 133/78
[2022-10-02 04:13] VITALS: BP 110/70
[2022-10-02] MEDS: VALPROIC ACID 250 MG/5 ML UDC GT SCH ×3 (05:00→21:01)
[2022-10-02] MEDS: BLOOD SUGAR DIAGNOSTIC 1 EACH STRIP IN SCH ×4 (05:10→23:03)
[2022-10-02] MEDS: INSULIN REGULAR, HUMAN 100 UNIT/ML 3 ML VIAL SQ PRN ×3 (05:12→23:08)
--- NOTE | 2022-10-02 06:30 | NUR ---
PRIVACY ATTORNEY CLOSING NOTE PATIENT A/O X0, NO S/S OF SOB OR DISTRESS NOTED. SURFACE GRINDER SINUS RHYTHM 68. LEFT UPPER CHEST HD CATHETER INTACT WITH CLEAN DRESSING. RT FOREARM IV G20 SALINE LOCKED, PATENT. GT IN PLACE PATENT NO RESIDUAL ON NEPHRO FORMULA AT 45ML/HR. HOB ELEVATED. SIDE RAILS UPX2. BED IN LOW POSITION, LOCKED, EXIT ALARM ON. CALL LIGHT IN REACH. ASPIRATION PRECAUTIONS MAINTAINED. KEPT CLEAN AND DRY. TURNED AND REPOSITIONED. TOTAL CARE PROVIDED. BLOOD GLUCOSE CHECKED AND COVERED ORDERED. NO S/S OF HYPO OR HYPER GLYCEMIA WILL ENDORSE SARA TO AM SHIFT
[2022-10-02 07:04] LABS: BASOPHILS # (AUTO) 0.1 K/uL (0.0-0.2); BASOPHILS % (AUTO) 0.5 % (0.0-2.0); EOSINOPHILS % (AUTO) 8.8 % (0.0-6.0); HEMATOCRIT 35 % (39-51); HEMOGLOBIN 10.9 g/dL (13.5-17.5); LYMPHOCYTES # (AUTO) 1.8 K/uL (0.8-4.8); LYMPHOCYTES % (AUTO) 15.1 % (20.0-44.0); MEAN CORPUSCULAR HGB CONC 32 g/dl (31.0-36.0); MEAN CORPUSCULAR VOLUME 99 fL (80-96); MONOCYTES # (AUTO) 1.3 K/uL (0.1-1.30); MONOCYTES % (AUTO) 11.1 % (2.0-12.0); NEUTROPHILS # (AUTO) 7.7 K/uL (1.8-8.9); NEUTROPHILS % (AUTO) 64.5 % (43.0-81.0); PLATELET COUNT (AUTO) 262 K/uL (150-450); RED BLOOD CELL COUNT(AUTO) 3.49 MIL/uL (4.5-6.0); WHITE BLOOD COUNT (AUTO) 11.9 K/uL (4.3-11.0)
--- NOTE | 2022-10-02 07:05 | NUR ---
COMPUTER SYSTEM VALIDATION SPECIALIST OPEN NOTE: OBTUNDED. TRACH AND VENT AT PRESCRIBED SETTINGS. MOIST ORAL MUCOSA . SUCTIONED SECRETIONS, WHITE AND THIN. SKIN IS WARM AND DRY. MARKET REPORTER SINUS RHYTHM 82. LEFT UPPER CHEST HD CATHETER INTACT WITH CLEAN DRESSING. RT FOREARM IV G20 SALINE LOCKED, PATENT. GT IN PLACE PATENT NO RESIDUAL WITH NEPHRO FORMULA AT 45ML/HR. HOB ELEVATED. BILATERAL HALF SIDE RAILS UPX2. BED IN LOW POSITION, LOCKED, EXIT ALARM ON. CALL LIGHT IN REACH. ASPIRATION PRECAUTIONS MAINTAINED.
[2022-10-02 07:31] LABS: CALCIUM, SERUM 10.1 mg/dL (8.5-10.1); CREATININE 5.1 mg/dL (0.6-1.3); MAGNESIUM 2.7 mg/dL (1.8-2.4); PHOSPHORUS 3.7 mg/dL (2.5-4.9); POTASSIUM 3.5 mmol/L (3.5-5.1)
[2022-10-02 08:00] VITALS: BP 129/77
[2022-10-02] MEDS: hydrALAZINE HCL 50 MG TABLET GT SCH ×3 (09:12→17:25)
[2022-10-02] MEDS: DOCUSATE SODIUM LIQ 100 MG/10 ML UDC GT SCH ×2 (09:12→17:00)
[2022-10-02] MEDS: VIT B CMPLX 3/FA/VIT C/BIOTIN 1 TAB TABLET GT SCH (09:12)
[2022-10-02] MEDS: PANTOPRAZOLE 40 MG/PACK PACK GT SCH (09:12)
[2022-10-02] MEDS: CARVEDILOL 12.5 MG TABLET GT SCH ×2 (09:13→21:00)
[2022-10-02] MEDS: MAGNESIUM OXIDE 400 MG TABLET GT SCH (09:13)
[2022-10-02] MEDS: NEUTRA PHOS 1 POWD.PACKET GT SCH (09:13)
[2022-10-02] MEDS: AMLODIPINE BESYLATE 10 MG TABLET GT SCH (09:13)
[2022-10-02] MEDS: ACETAMINOPHEN 325 MG TABLET MC PRN ×2 (09:14→17:23)
[2022-10-02] MEDS: PROSOURCE / PROSTAT (PYXIS) 30 ML UDC GT SCH ×3 (09:15→17:25)
[2022-10-02] MEDS: SACUBITRIL/VALSARTAN 1 EACH TABLET PO SCH ×2 (09:20→17:31)
[2022-10-02] MEDS: POLYVINYL ALCOHOL 15 ML BOTTLE EACHEYE SCH ×2 (09:29→18:26)
[2022-10-02] MEDS: CLOTRIMAZOLE 1% 15 GM TUBE TP SCH (09:30)
[2022-10-02] MEDS: TIMOLOL 0.25% SOL OPHTH 10 ML BOTTLE EACHEYE SCH ×2 (09:30→18:26)
[2022-10-02] MEDS: BRIMONIDINE TARTRATE OPHT SOLN 5 ML BOTTLE LEFTEYE SCH ×2 (09:30→18:27)
[2022-10-02] MEDS: DORZOLAMIDE OPTH 2% 10 ML BOTTLE EACHEYE SCH ×2 (09:30→18:27)
[2022-10-02 12:00] VITALS: BP 94/51
[2022-10-02] MEDS: CEFEPIME 1 GM in IV D5W 50 ML IV SCH (14:15)
--- NOTE | 2022-10-02 14:53 | NUR ---
DOCTOR VIPIN INFORMED HYDRALAZINE 1300 50 MG DOSE HELD DUE TO BP 94/51, HR 72.
[2022-10-02 16:00] VITALS: BP 121/72
--- NOTE | 2022-10-02 18:45 | NUR ---
LICENSED TAX CONSULTANT CLOSING NOTE: OBTUNDED. TRACH AND VENT AT PRESCRIBED SETTINGS. MOIST ORAL MUCOSA . SUCTIONED SECRETIONS MODERATE WHITE AND THIN. SKIN IS WARM AND DRY. SCALP TREATMENT OPERATOR SINUS RHYTHM 82 WITH PVC'S AND PAC'S. LEFT UPPER CHEST HD CATHETER INTACT WITH CLEAN DRESSING. RT UPPER ARM NEW MIDLINE PATENT, NO S/S OF COMPLICATIONS. GT IN PLACE PATENT NO RESIDUAL WITH NEPHRO FORMULA AT 45ML/HR. HOB ELEVATED. BILATERAL HALF SIDE RAILS UPX2. BED IN LOW POSITION, LOCKED, EXIT ALARM ON. CALL LIGHT IN REACH. ASPIRATION PRECAUTIONS MAINTAINED. TURNED AND REPOSITIONED. KEPT CLEAN AND DRY. TYLENOL GIVEN TIMES TWO. EPISODE OF LOW GRADE TEMP, AND COOLING MEASURES AND EFFECTIVE.
--- NOTE | 2022-10-02 19:30 | NUR ---
RADIO STATION OPERATOR OPENING NOTE RECEIVED PT IN RESTING IN BED, OBTUNDED. TRACH AND VENT AT PRESCRIBED SETTINGS. MOIST ORAL MUCOSA. SKIN IS WARM AND DRY. GUIDE DOG MOBILITY INSTRUCTOR SR PAC'S, 81 HR. LEFT UPPER CHEST HD CATHETER INTACT WITH CLEAN DRESSING. IV ACCESS MARIVEL MIDLINE #18G SL, PATENT, INTACT, FLUSHING WELL. GT IN PLACE PATENT NO RESIDUAL WITH NEPHRO FORMULA AT 45ML/HR. HOB ELEVATED. SAFETY PRECAUTIONS IN PLACE: BED LOCKED AND IN LOW POSITION, BED ALARM ON, CALL LIGHT AND TRAY TABLE WITHIN REACH. WILL CONTINUE TO MONITOR AND ASSIST.
[2022-10-02 20:00] VITALS: BP 112/65
[2022-10-02] MEDS: NEPRO 1,000 ML BOTTLE GT PRN (21:00)
[2022-10-02] MEDS: SENNOSIDES 8.6 MG TABLET GT SCH (21:01)
[2022-10-02] MEDS: INSULIN GLARGINE, 100 UNIT/ML CARTRIDGE SQ SCH (23:08)
--- NOTE | 2022-10-02 23:08 | NUR ---
RN NOTE: BLOOD SUGAR 184 MG/DL. 30 UNITS OF LANTUS GIVEN ORDERED AND 3 UNITS OF REGULAR INSULIN PER SLIDING SCALE. PT IN GT FEEDING.
[2022-10-03] VITALS: BP 120/69
[2022-10-03 04:00] VITALS: BP 110/61
[2022-10-03] MEDS: VALPROIC ACID 250 MG/5 ML UDC GT SCH ×2 (05:25→13:32)
[2022-10-03] MEDS: BLOOD SUGAR DIAGNOSTIC 1 EACH STRIP IN SCH ×2 (05:26→11:26)
[2022-10-03] MEDS: INSULIN REGULAR, HUMAN 100 UNIT/ML 3 ML VIAL SQ PRN (05:26)
--- NOTE | 2022-10-03 06:29 | NUR ---
SUBSTATION OPERATOR CONVERSION CLOSING NOTE PT IN RESTING IN BED, OBTUNDED. TRACH AND VENT AT PRESCRIBED SETTINGS, BREATHING EVEN AND UNLABORED, NO DISTRESS NOTED, O2 SAT AT 99%. MOIST ORAL MUCOSA. SKIN IS WARM AND DRY. INSURANCE SALESPERSON SR PAC'S, 70'S-80'S HR. LEFT UPPER CHEST HD CATHETER INTACT WITH CLEAN DRESSING. IV ACCESS MARIVEL MIDLINE #18G SL, PATENT, INTACT, FLUSHING WELL. GT IN PLACE PATENT NO RESIDUAL WITH NEPHRO FORMULA AT 45ML/HR, TURNED OFF AT 0600, TO BE RESTARTED AT 1000, FLUSHED REGULARLY. HOB ELEVATED. ALL CARE PROVIDED AND MEDS TOLERATED WELL. TURNED/REPOSITIONED. SUCTIONED NEEDED. WOUND CARE PROVIDED. SAFETY PRECAUTIONS MAINTAINED: BED LOCKED AND IN LOW POSITION, BED ALARM ON, CALL LIGHT AND TRAY TABLE WITHIN REACH. WILL ENDORSE SARA TO DAY SHIFT NURSE.
[2022-10-03 06:36] LABS: BASOPHILS # (AUTO) 0.1 K/uL (0.0-0.2); BASOPHILS % (AUTO) 0.5 % (0.0-2.0); EOSINOPHILS % (AUTO) 8.3 % (0.0-6.0); HEMATOCRIT 34 % (39-51); HEMOGLOBIN 10.7 g/dL (13.5-17.5); LYMPHOCYTES # (AUTO) 2.1 K/uL (0.8-4.8); LYMPHOCYTES % (AUTO) 16.7 % (20.0-44.0); MEAN CORPUSCULAR HGB CONC 32 g/dl (31.0-36.0); MEAN CORPUSCULAR VOLUME 99 fL (80-96); MONOCYTES # (AUTO) 1.4 K/uL (0.1-1.30); MONOCYTES % (AUTO) 11.3 % (2.0-12.0); NEUTROPHILS # (AUTO) 7.8 K/uL (1.8-8.9); NEUTROPHILS % (AUTO) 63.2 % (43.0-81.0); PLATELET COUNT (AUTO) 257 K/uL (150-450); RED BLOOD CELL COUNT(AUTO) 3.41 MIL/uL (4.5-6.0); WHITE BLOOD COUNT (AUTO) 12.3 K/uL (4.3-11.0)
[2022-10-03 06:50] LABS: CREATININE 6.2 mg/dL (0.6-1.3); MAGNESIUM 2.8 mg/dL (1.8-2.4); PHOSPHORUS 4.5 mg/dL (2.5-4.9); POTASSIUM 3.6 mmol/L (3.5-5.1)
--- NOTE | 2022-10-03 07:29 | NUR ---
RAPIER INSERTION LOOM FIXER OPENING NOTE Received pt in bed, obtunded, responsive to tactile stimuli only. On mech vent. via trach, current settings well tolerated, O2 sat- 100%. SR 68 W/PAC AND PVCS. ON TELE MONITOR. RIGHT UPPER ARM MIDLINE, PIV access on RFA #20G, patent, dressing CDI, on SL. PEG tube noted, in placed, patent, and secured, 0 residual, clamped. HOB elevated. Safety precaution implemented- bed locked and in lowest position, bed alarm on.
[2022-10-03 08:00] VITALS: BP 124/77
[2022-10-03] MEDS: DOCUSATE SODIUM LIQ 100 MG/10 ML UDC GT SCH (08:19)
[2022-10-03] MEDS: NEUTRA PHOS 1 POWD.PACKET GT SCH (08:19)
[2022-10-03] MEDS: MAGNESIUM OXIDE 400 MG TABLET GT SCH (08:19)
[2022-10-03] MEDS: VIT B CMPLX 3/FA/VIT C/BIOTIN 1 TAB TABLET GT SCH (08:19)
[2022-10-03] MEDS: PANTOPRAZOLE 40 MG/PACK PACK GT SCH (08:19)
[2022-10-03] MEDS: PROSOURCE / PROSTAT (PYXIS) 30 ML UDC GT SCH ×2 (08:26→13:32)
[2022-10-03] MEDS: CARVEDILOL 12.5 MG TABLET GT SCH (09:00)
[2022-10-03] MEDS: hydrALAZINE HCL 50 MG TABLET GT SCH ×2 (09:00→13:00)
[2022-10-03] MEDS: DORZOLAMIDE OPTH 2% 10 ML BOTTLE EACHEYE SCH (09:00)
[2022-10-03] MEDS: SACUBITRIL/VALSARTAN 1 EACH TABLET PO SCH (09:00)
[2022-10-03] MEDS: AMLODIPINE BESYLATE 10 MG TABLET GT SCH (09:00)
--- NOTE | 2022-10-03 09:20 | NUR ---
RN NOTE BP MEDICATIONS ON HOLD AT THIS TIME DUE TO PT RECEIVING DIALYSIS AT THIS TIME
[2022-10-03] MEDS: BRIMONIDINE TARTRATE OPHT SOLN 5 ML BOTTLE LEFTEYE SCH (10:08)
[2022-10-03] MEDS: POLYVINYL ALCOHOL 15 ML BOTTLE EACHEYE SCH (10:08)
[2022-10-03] MEDS: CLOTRIMAZOLE 1% 15 GM TUBE TP SCH (10:08)
[2022-10-03] MEDS: TIMOLOL 0.25% SOL OPHTH 10 ML BOTTLE EACHEYE SCH (10:09)
[2022-10-03 12:00] VITALS: BP 113/69
--- NOTE | 2022-10-03 12:50 | NUR ---
RN NOTE DIALYSIS COMPELTED. DIALYSIS NURSE REMOVED 2L. PT TOLERATED WELL
[2022-10-03] MEDS: VANCOMYCIN POST DIALYSIS 500MG IV PRN ×2 (12:56)
[2022-10-03 13:00] VITALS: BP 119/71
--- NOTE | 2022-10-03 14:52 | NUR ---
rn note [facility]
[2022-10-03] MEDS ORDERED: SULF1TAB47 PO (15:24)
--- NOTE | 2022-10-03 16:50 | NUR ---
CARBON CLEANER NOTE PT LEFT IN STABLE CONDITION. PT VENT DEPENDENT, OBTUNDED AND NONVERBAL. REMOVED MIDLINE AND TELE MONITOR BOX. WENT OVER DISCHARGE INSTRUCTIONS, HEALTH TEACHINGS AND MEDICATION LIST WITH TRANSPORT TEAM. ALL BELONGINS WITH PT AND PILLOWS WERE TAKEN EARLIER WITH PT . TRANSFERRED TO [facility].
--- NOTE | 2022-10-03 17:00 | NUR ---
RN NOTE RECEIVED CALL FROM TAE HARMAN REGARDING MEDICATION LIST FINALIZED, FAXED OVER FINALIZED MEDICATION LIST, FACILITY RECEIVED COMPLETE REPORT FAX SHEET
== END 2022-10-03 16:03 | DRG 870 ==
LOC: ER 13:07 → TELE1 14:45
PROVIDERS: ADMIT Student in an Organized Health Care Education/Training Program; ATTEND Student in an Organized Health Care Education/Training Program
PROC: 5A1955Z Respiratory Ventilation, Greater than 96 Consecutive Hours (ICD-10-PCS; principal; 2022-09-28)
PROC: 5A1D70Z Performance of Urinary Filtration, Intermittent, Less than 6 Hours Per Day (ICD-10-PCS; 2022-09-30)
DX: A41.9 Sepsis, unspecified organism (principal); I21.4 Non-ST elevation (NSTEMI) myocardial infarction; N18.6 End stage renal disease; E44.0 Moderate protein-calorie malnutrition; I12.0 Hypertensive chronic kidney disease with stage 5 chronic kidney disease or end stage renal disease; N39.0 Urinary tract infection, site not specified; Z99.11 Dependence on respirator [ventilator] status; J96.10 Chronic respiratory failure, unspecified whether with hypoxia or hypercapnia; Z20.822 Contact with and (suspected) exposure to COVID-19; E11.22 Type 2 diabetes mellitus with diabetic chronic kidney disease; G40.909 Epilepsy, unspecified, not intractable, without status epilepticus; Z86.73 Personal history of transient ischemic attack (TIA), and cerebral infarction without residual deficits; E78.5 Hyperlipidemia, unspecified; K21.9 Gastro-esophageal reflux disease without esophagitis; Z99.2 Dependence on renal dialysis; Z93.0 Tracheostomy status; Z93.1 Gastrostomy status; I25.2 Old myocardial infarction; E87.6 Hypokalemia; D63.8 Anemia in other chronic diseases classified elsewhere; D50.9 Iron deficiency anemia, unspecified; E83.41 Hypermagnesemia; F20.9 Schizophrenia, unspecified; M89.8X9 Other specified disorders of bone, unspecified site; R13.10 Dysphagia, unspecified; I95.3 Hypotension of hemodialysis
CPT/HCPCS: 31720; 36410; 36415; 71045-TC; 80048-TC; 80076-TC; 80202-TC; 82533; 82962-TC; 83540-TC; 83605-TC; 83735-TC; 84100-TC; 84443-TC; 84484-TC; 85025-TC; 85730-TC; 86706; 87040-TC; 87081-TC; 87340; 90935-TC; 94003-TC; 94760-TC; 94799-TC; A4223; A4623; A7526; C9803; G0378; J0692; J1815; J3370; J7050; J7060